=== PATIENT | male | born 1955 | race African-American/Black ===

== ENCOUNTER 2020-04-22 11:07 | Inpatient (IN) | payer MEDICARE, OTHER, MEDICAID ==
[~2020-04-22] VITALS: Ht 167.6 cm; Wt 65.8 kg
[~2020-04-22 11:07] MED LIST: AMI2 PO; ASPI-1158 PO; CLOP75TA15 PO; COR3 PO; FURO40TA5 PO; LIP40 PO
[2020-04-22 11:55] LABS: BASOPHILS % 1.3 % (0.0-2.0); EOSINOPHILS % 10.2 % (0.0-5.0); HEMATOCRIT. 29.2 % (42.0-52.0); HEMOGLOBIN. 9.7 g/dL (14.0-18.0); LYMPHOCYTES % 24.3 % (20.0-50.0); MEAN CORPUSCULAR HEMOGLOBIN 31.6 pg (28.0-32.0); MEAN PLATELET VOLUME 7.1 fl (7.4-10.4); MONOCYTES % 9.6 % (2.0-8.0); NEUTROPHILS % 54.6 % (40.0-76.0); PLATELET 446 x1000/uL (130-400); RED BLOOD CELL COUNT 3.07 mill/uL (4.7-6.1); RED CELL DISTRIBUTION WIDTH 16.2 % (11.6-14.6)
[2020-04-22 11:59] LABS: CHLORIDE 107 mEq/L (98-107)
[2020-04-22 12:06] LABS: PARTIAL THROMBOPLASTIN TIME 26.3 sec (23.4-31.0); PROTHROMBIN TIME 10.9 sec (9.6-11.0)
[2020-04-22] MEDS ORDERED: FUROSEMIDE 40MG/4ML VIAL IV ONE (13:00)
[2020-04-22] MEDS ORDERED: NITROGLYCERIN OINT 1GM/INCH UDPKT TD ONE (13:00)
[2020-04-22] MEDS ORDERED: ASPIRIN 325MG EC TABLET PO ONE (13:00)
[2020-04-22] MEDS ORDERED: MORPHINE SULFATE 2 MG/ML CPJ (NOT FOR IM USE) IV PRN (13:30)
[2020-04-22] MEDS ORDERED: NITROGLYCERIN 0.4MG TABLET SL SL PRN (13:30)
[2020-04-22] MEDS ORDERED: ACETAMINOPHEN 325MG TABLET PO PRN ×2 (13:30)
[2020-04-22] MEDS ORDERED: TRAMADOL 50MG TABLET PO PRN (13:30)
[2020-04-22] MEDS ORDERED: IPRATROPIUM/ALBUTEROL 0.5-3(2.5)MG/3ML NEB ORI PRN (13:30)
[2020-04-22] MEDS ORDERED: MAGNESIUM/ALUMINUM HYDROXIDE/SIMETHICONE 30ML UDC PO PRN (13:30)
[2020-04-22] MEDS ORDERED: GUAIFENESIN 200MG/10ML SUGAR FREE UDC PO PRN (13:30)
[2020-04-22] MEDS ORDERED: CLONIDINE 0.1MG TABLET PO PRN (13:30)
[2020-04-22] MEDS ORDERED: DOCUSATE SODIUM 100MG CAPSULE PO PRN (13:30)
[2020-04-22] MEDS ORDERED: ONDANSETRON HCL 4MG/2ML INJ IV PRN (13:30)
[2020-04-22 14:09] LABS: FOLIC ACID (FOLATE) SERUM 7.9 ng/mL (>5.38)
[2020-04-22] MEDS: ENOXAPARIN 40MG/0.4ML SYR SUBCUT SCH (14:47)
[2020-04-22 15:22] LABS: CREATINE KINASE 56 IU/L (39-308)
[2020-04-22 15:23] LABS: CREATINE KINASE MB FRACTION 1.5 ng/mL (0.5-3.6)
[2020-04-22 16:47] VITALS: BP 128/48
[2020-04-22 16:50] VITALS: BP 128/48
[2020-04-22] MEDS: FERROUS SULFATE 325MG TABLET PO SCH (18:46)
[2020-04-22 20:00] VITALS: BP 123/57
[2020-04-22] MEDS: FAMOTIDINE 20MG TABLET PO SCH (20:50)
[2020-04-22] MEDS: ATORVASTATIN CALCIUM 40MG TABLET PO SCH (20:50)
[2020-04-22] MEDS: ZOLPIDEM TARTRATE 5MG TABLET PO PRN (20:50)
[2020-04-22] MEDS: FUROSEMIDE 40MG/4ML VIAL IVP SCH (20:51)
[2020-04-22] MEDS: ASCORBIC ACID 500 MG TABLET PO SCH (20:51)
[2020-04-22] MEDS: SPIRONOLACTONE 25MG TABLET PO SCH (20:51)
[2020-04-22 23:20] LABS: CREATINE KINASE 40 IU/L (39-308)
[2020-04-22 23:21] LABS: CREATINE KINASE MB FRACTION < 1.0 ng/mL (0.5-3.6)
[2020-04-23] VITALS: BP 122/53
[2020-04-23 04:00] VITALS: BP 126/61
[2020-04-23] MEDS ORDERED: SODIUM CHLORIDE 0.45% 1,000 ML IV ONE (06:00)
[2020-04-23 06:30] LABS: BASOPHILS % 1.2 % (0.0-2.0); EOSINOPHILS % 12.2 % (0.0-5.0); HEMATOCRIT. 28.7 % (42.0-52.0); HEMOGLOBIN. 9.5 g/dL (14.0-18.0); LYMPHOCYTES % 27.4 % (20.0-50.0); MEAN CORPUSCULAR HEMOGLOBIN 31.3 pg (28.0-32.0); MEAN CORPUSCULAR VOLUME 94.2 fL (80.0-94.0); MEAN PLATELET VOLUME 7.6 fl (7.4-10.4); MONOCYTES % 14.4 % (2.0-8.0); NEUTROPHILS % 44.8 % (40.0-76.0); PLATELET 431 x1000/uL (130-400); RED BLOOD CELL COUNT 3.05 mill/uL (4.7-6.1); RED CELL DISTRIBUTION WIDTH 16.4 % (11.6-14.6)
[2020-04-23 06:58] LABS: CHLORIDE 105 mEq/L (98-107)
[2020-04-23 07:06] LABS: PHOSPHORUS 3.6 mg/dL (2.5-4.9)
[2020-04-23 08:00] VITALS: BP 115/62
[2020-04-23] MEDS ORDERED: AMIODARONE HCL 200 MG TABLET PO SCH (09:00)
[2020-04-23] MEDS: CLOPIDOGREL 75MG TABLET PO SCH (09:40)
[2020-04-23] MEDS: SPIRONOLACTONE 25MG TABLET PO SCH ×2 (09:40→20:47)
[2020-04-23] MEDS: ZINC SULFATE 220 MG ( 50 ) CAPSULE PO SCH (09:40)
[2020-04-23] MEDS: ASCORBIC ACID 500 MG TABLET PO SCH ×2 (09:40→20:17)
[2020-04-23] MEDS: FAMOTIDINE 20MG TABLET PO SCH ×2 (09:41→20:17)
[2020-04-23] MEDS: ENOXAPARIN 40MG/0.4ML SYR SUBCUT SCH (09:41)
[2020-04-23] MEDS: ASPIRIN 81MG EC TABLET PO SCH (09:41)
[2020-04-23] MEDS: FUROSEMIDE 40MG/4ML VIAL IVP SCH ×2 (09:41→20:22)
[2020-04-23] MEDS: FERROUS SULFATE 325MG TABLET PO SCH ×2 (09:43→17:20)
[2020-04-23] MEDS ORDERED: IOHEXOL-350 100 ML BOTTLE ONE (09:52)
[2020-04-23 12:00] VITALS: BP 96/50
[2020-04-23] MEDS ORDERED: FUROSEMIDE 40MG/4ML VIAL IVP NR (12:45)
[2020-04-23] MEDS ORDERED: MAGNESIUM 4 G PREMIX 100 ML IV SCH (14:00)
[2020-04-23 16:00] VITALS: BP 96/46
[2020-04-23 20:00] VITALS: BP 109/56
[2020-04-23] MEDS: ATORVASTATIN CALCIUM 40MG TABLET PO SCH (20:17)
[2020-04-23 21:13] LABS: CLARITY URINE CLEAR (CLEAR); COLOR URINE YELLOW (YELLOW); KETONES URINE NEGATIVE (NEGATIVE); LEUKOCYTE ESTERASE URINE NEGATIVE (NEGATIVE); NITRITE URINE NEGATIVE (NEGATIVE); OCCULT BLOOD URINE NEGATIVE (NEGATIVE); PROTEIN URINE NEGATIVE (NEGATIVE); SPECIFIC GRAVITY URINE 1.031 (1.005-1.030); UROBILINOGEN URINE 0.2 E.U./dL (0.2-1.0)
[2020-04-23 21:39] LABS: *AMPHETAMINES SCREEN URINE NEGATIVE (NEGATIVE); *BARBITURATES SCREEN URINE NEGATIVE (NEGATIVE); *BENZODIAZEPINES SCREEN URINE NEGATIVE (NEGATIVE); *COCAINE SCREEN URINE NEGATIVE (NEGATIVE); METHADONE URINE SCREEN NEGATIVE (NEGATIVE)
[2020-04-23 21:40] LABS: CANNABINOID URINE SCREEN NEGATIVE (NEGATIVE); OPIATES URINE SCREEN NEGATIVE (NEGATIVE); PHENCYCLIDINE URINE SCREEN NEGATIVE (NEGATIVE)
[2020-04-24] VITALS: BP 100/45
[2020-04-24] MEDS: ZOLPIDEM TARTRATE 5MG TABLET PO PRN (00:04)
[2020-04-24 04:00] VITALS: BP 103/45
[2020-04-24 07:02] LABS: CHLORIDE 105 mEq/L (98-107)
[2020-04-24 07:19] LABS: BASOPHILS % 1.1 % (0.0-2.0); EOSINOPHILS % 8.8 % (0.0-5.0); HEMATOCRIT. 31.1 % (42.0-52.0); HEMOGLOBIN. 10.2 g/dL (14.0-18.0); MEAN CORPUSCULAR HEMOGLOBIN 31.1 pg (28.0-32.0); MEAN CORPUSCULAR VOLUME 94.4 fL (80.0-94.0); MEAN PLATELET VOLUME 7.2 fl (7.4-10.4); MONOCYTES % 13.1 % (2.0-8.0); PLATELET 487 x1000/uL (130-400); RED CELL DISTRIBUTION WIDTH 16.6 % (11.6-14.6)
[2020-04-24 08:02] VITALS: BP 112/50
[2020-04-24] MEDS: ZINC SULFATE 220 MG ( 50 ) CAPSULE PO SCH (09:02)
[2020-04-24] MEDS: ASCORBIC ACID 500 MG TABLET PO SCH (09:02)
[2020-04-24] MEDS: FUROSEMIDE 40MG/4ML VIAL IVP SCH (09:03)
[2020-04-24] MEDS: FAMOTIDINE 20MG TABLET PO SCH (09:03)
[2020-04-24] MEDS: CLOPIDOGREL 75MG TABLET PO SCH (09:03)
[2020-04-24] MEDS: FERROUS SULFATE 325MG TABLET PO SCH (09:03)
[2020-04-24] MEDS: ASPIRIN 81MG EC TABLET PO SCH (09:03)
[2020-04-24] MEDS: SPIRONOLACTONE 25MG TABLET PO SCH (09:04)
[2020-04-24] MEDS: ENOXAPARIN 40MG/0.4ML SYR SUBCUT SCH (09:04)
== END 2020-04-24 12:08 | disposition home health service (06) | DRG 300 ==
LOC: ER 11:07 → EDBEDREQTM 13:07 → EDBEDREQ 13:07 → SUPCPDRO 13:24 → ENRESERV 14:41 → 5WST 16:30
PROVIDERS: ADMIT Internal Medicine; ATTEND Internal Medicine
DX: I70.201 Unspecified atherosclerosis of native arteries of extremities, right leg (principal); E44.1 Mild protein-calorie malnutrition; I42.9 Cardiomyopathy, unspecified; F17.210 Nicotine dependence, cigarettes, uncomplicated; E83.51 Hypocalcemia; I25.10 Atherosclerotic heart disease of native coronary artery without angina pectoris; J44.9 Chronic obstructive pulmonary disease, unspecified; I11.0 Hypertensive heart disease with heart failure; E78.00 Pure hypercholesterolemia, unspecified; E78.5 Hyperlipidemia, unspecified; I34.0 Nonrheumatic mitral (valve) insufficiency; I50.9 Heart failure, unspecified; Z68.23 Body mass index [BMI] 23.0-23.9, adult; Z95.1 Presence of aortocoronary bypass graft; Z79.82 Long term (current) use of aspirin; Z79.899 Other long term (current) drug therapy; I25.2 Old myocardial infarction; Z71.6 Tobacco abuse counseling; D63.8 Anemia in other chronic diseases classified elsewhere
CPT/HCPCS: 36415; 71045; 72191; 73706; 80048; 80053; 80061; 80305; 81003; 82550; 82553; 82607; 82746; 83036; 83540; 83550; 83735; 83880; 84100; 84443; 84484; 85025; 85044; 86850; 86900; 93005; 93923; 93970; 99285; J1650; J1940; J3475; Q9967

== ENCOUNTER 2020-08-14 15:20 | Emergency (ER) | payer MEDICARE, OTHER ==
[~2020-08-14] VITALS: Ht 182.9 cm; Wt 65.0 kg
[2020-08-14 18:25] LABS: BASOPHILS % 0.9 % (0.0-2.0); EOSINOPHILS % 3.5 % (0.0-5.0); HEMATOCRIT. 37.4 % (42.0-52.0); HEMOGLOBIN. 11.9 g/dL (14.0-18.0); LYMPHOCYTES % 33.9 % (20.0-50.0); MEAN CORPUSCULAR HEMOGLOBIN 24.4 pg (28.0-32.0); MEAN CORPUSCULAR VOLUME 76.6 fL (80.0-94.0); MEAN PLATELET VOLUME 8.4 fl (7.4-10.4); MONOCYTES % 7.4 % (2.0-8.0); NEUTROPHILS % 54.3 % (40.0-76.0); PLATELET 338 x1000/uL (130-400); RED BLOOD CELL COUNT 4.88 mill/uL (4.7-6.1); RED CELL DISTRIBUTION WIDTH 22.9 % (11.6-14.6)
[2020-08-14 18:28] LABS: CHLORIDE 107 mEq/L (98-107)
[2020-08-14 18:37] LABS: PLATELET ESTIMATE NORMAL
[2020-08-14 19:29] VITALS: BP 123/74
== END 2020-08-14 19:30 | disposition home or self-care (01) ==
LOC: ER 15:20
DX: G47.00 Insomnia, unspecified (principal); E78.00 Pure hypercholesterolemia, unspecified; I25.2 Old myocardial infarction; J44.1 Chronic obstructive pulmonary disease with (acute) exacerbation; Z79.899 Other long term (current) drug therapy
CPT/HCPCS: 36415; 71045; 80053; 83880; 84484; 85025; 93005; 99283